=== PATIENT | female | born 1975 | race Caucasian/White ===

== ENCOUNTER 2017-02-04 19:16 | Emergency (ER) | payer BC ==
[~2017-02-04] VITALS: Ht 172.7 cm; Wt 119.7 kg
[2017-02-04 19:25] VITALS: BP 153/78
[2017-02-04] MEDS ORDERED: HYDR-971 PO (20:33)
[2017-02-04] MEDS ORDERED: CLIN-44 PO (20:33)
--- NOTE | 2017-02-04 20:33 | PHYS DOC ---
Past Medical History Past Medical History: Asthma, Hypertension Past Surgical History: Appendectomy, Cholecystectomy, Tubal ligation, Other Additional Past Surgical Histo: dental, pancreas, back sx Alcohol Use: None Drug Use: None Adult General Chief Complaint Chief Complaint: DENTAL PROBLEM [facility] HPI Patient is a 41 year old female presents emergency department stating that she had been on amoxicillin. He can stop taking it on for dental infection. Patient states that she had a yeast infection and felt that she no longer needed to take the antibiotic. Patient presents today with left lower dental pain. She states that she had a spur in the mouth in which she pulled it out last night. She states that she has been having increased pain today she tried Tylenol without relief. She states that she did not call her dentist as she thought that she could take care of the pain and discomfort. Although the night became near and he is office had closed. She denies fever, chills she does state that she has dentures and or rub and on the area. Review of Systems Review of Systems Constitutional: Denies fever or chills [] Eyes: Denies change in visual acuity, redness, or eye pain [] HENT: Denies nasal congestion or sore throat. C/o dental pain. Respiratory: Denies cough or shortness of breath [] Cardiovascular: No additional information not addressed in HPI [] GI: Denies abdominal pain, nausea, vomiting, bloody stools or diarrhea [] : Denies dysuria or hematuria [] Musculoskeletal: Denies back pain or joint pain [] Integument: Denies rash or skin lesions [] Neurologic: Denies headache, focal weakness or sensory changes [] Allergies Allergies Allergies Coded Allergies Type Severity Reaction Last Updated Verified tramadol Adverse Reaction Intermediate Nausea and Vomiting 02/04/17 Yes ibuprofen Adverse Reaction Unknown other 02/04/17 Yes Physical Exam Physical Exam Constitutional: Well developed, well nourished, no acute distress, non-toxic appearance. [] HENT: Normocephalic, atraumatic, bilateral external ears normal, oropharynx moist, no oral exudates, nose normal. Bilateral tympanic membranes appear to be normal throat with no erythematous noted patient was noted to have a hole back in the left molar area as well as reddened area towards the center part of the mouth. Patient does not have her dentures in at this time. No drainage or discharge noted from the areas. Eyes: PERRLA, EOMI, conjunctiva normal, no discharge. [] Neck: Normal range of motion, no tenderness, supple, no stridor. [] Cardiovascular:Heart rate regular rhythm Lungs & Thorax: No respiratory distress noted Skin: Warm, dry, no erythema, no rash. [] Back: No tenderness Extremities: No tenderness, no cyanosis, no clubbing, ROM intact, no edema. [] Neurologic: Alert and oriented X 3, normal motor function, normal sensory function, no focal deficits noted. [] Psychologic: Affect normal, judgement normal, mood normal. [] Current Patient Data Vital Signs Vital Signs Date Time Temp Pulse Resp B/P Pulse Ox O2 Delivery O2 Flow Rate FiO2 02/04/17 19:25 98.1 74 18 97 Room Air 98.1 EKG EKG [] Radiology/Procedures Radiology/Procedures [] Course & Med Decision Making Course & Med Decision Making Pertinent Labs and Imaging studies reviewed. (See chart for details) Patient will be placed on clindamycin with recommendations to follow-up with her primary dentist tomorrow. Patient will also be provided with hydrocodone for pain and discomfort. Patient will be discharged home in stable condition signs and symptoms to return back to emergency department as been provided. Discharge instructions treatment regimens and follow-up recommendations. Patient will be discharged home with hydrocodone for severe pain and discomfort she was instructed that this medication will cause drowsiness do not take any be alert and oriented. [] Dragon Disclaimer Dragon Disclaimer This electronic medical record was generated, in whole or in part, using a voice recognition dictation system. Departure Departure Impression: Primary Impression: Pain, dental Additional Impression: Dental abscess Disposition: 01 HOME, SELF-CARE Condition: STABLE Referrals: CHICHI MULTANI (PCP) Patient Instructions: Dental Abscess, Dental Pain, [id number] Additional Instructions: You have been evaluated for dental pain. It appears that you have an abscess starting in the left lower frontal part of the mouth. Take the antibiotics as prescribed. Hydrocodone has been prescribed for severe pain and discomfort this medication will cause drowsiness do not take any be alert and oriented. Rinse mouth with warm salt water 4 times a day. Follow-up with your dentist tomorrow. Return back to emergency department for signs and symptoms of become worse. Scripts Hydrocodone/Apap 5-325 ([place] 5-325 Tablet)1 Each Tablet1 Tab PO PRN Q6HRS PRN PAIN #6 TAB Prov:MICKI ROTHMAN APRN 02/04/17 Clindamycin Hcl 150 Mg Capsule3 Cap PO TID 10 Days Prov:MICKI ROTHMAN APRN 02/04/17 Problem Qualifiers MICKI ROTHMAN APRN Feb 04, 2017 20:33
[2017-02-04] MEDS ORDERED: HYDROCODONE/APAP 5/325MG TABLET. PO ONE (20:45)
== END 2017-02-04 20:50 | disposition home or self-care (01) ==
LOC: ER 19:16
DX: K04.7 Periapical abscess without sinus (principal); I10 Essential (primary) hypertension; J45.909 Unspecified asthma, uncomplicated; Z88.6 Allergy status to analgesic agent; Z98.890 Other specified postprocedural states
CPT/HCPCS: 99283; 99284-25